=== PATIENT | female | born 1960 | race African-American/Black ===

== ENCOUNTER 2018-07-11 08:29 | Inpatient (IN) | payer OTHER ==
[~2018-07-11] VITALS: Ht 160 cm; Wt 90.7 kg
[~2018-07-11 08:29] MED LIST: HCTZ/RESERPINE/1 TAB; SYNTHROID50 MCG PO; TARKA 4/2401 BOTTLE PO; [UNRECOGNIZED DRUG - OTHER]; [UNRECOGNIZED DRUG - OTHER]
[2018-07-14] MEDS ORDERED: AMOX-CLAV 500-1 EACH PO (17:12)
[2018-07-14] MEDS ORDERED: ZANTAC150 MG PO (17:12)
== END 2018-07-14 17:45 | disposition home or self-care (01) | DRG 392 ==
LOC: ER 08:29 → MEDJ 21:56
PROVIDERS: ADMIT Internal Medicine
PROC: BW21ZZZ Computerized Tomography (CT Scan) of Abdomen and Pelvis (ICD-10-PCS; principal; 2018-07-11)
DX: K57.32 Diverticulitis of large intestine without perforation or abscess without bleeding (principal); K29.60 Other gastritis without bleeding; E86.0 Dehydration